=== PATIENT | female | born 1955 | race Caucasian/White ===

== ENCOUNTER 2019-06-12 12:44 | Emergency (ER) | payer OTHER, SELFPAY ==
[2019-06-12 12:47] VITALS: BP 165/74; PULSE 64; RESP 18; TEMP 36.1; O2SAT 98
--- NOTE | 2019-06-12 12:56 | ED.GENADUL_ITS ---
Discharge Plan Disposition Patient Disposition: HOME Condition: Stable Discharge Details Chief Complaint: RashLesion Clinical Impression: Tick bite Primary Care Provider: Dona Fernandez ED Provider: Jose Roberto Morales Home Meds and New Rx's Prescriptions: Continued atenolol 25 mg Tablet 25 mg PO DAILY RF: 0 montelukast [Singulair] 10 mg Tablet 10 mg PO DAILY RF: 0 Symbicort 160-4.5 mcg/actuation Hfa Aerosol Inhaler 2 puff INHALATION BID RF: 0 Discharge Instructions Instructions: Tick Bite (ED) Additional Instructions: As we discussed, you were given a 200 mg dose of doxycycline for prophylaxis against Lyme disease. Continue your regular medications. Medical Decision Making 64-year-old female presents with complaint of noticing a tick embedded in her left upper extremity today after walking in the outdoors yesterday. She is well-appearing otherwise healthy. The tick was removed by nursing staff. I recommended and will offer a single one-time dose of 200 mg doxycycline for prophylactic coverage of tickborne disease. She is stable for discharge to home. HPI General Mode of arrival: ambulatory . Date/Time Provider Initiated Documentation: 06/12/19 12:54 . Limitations to Documentation: no limitations . Information obtained by: patient . History of Present Illness 64 year old F presents to the emergency department with the chief complaint of Left upper extremity tick engorged, no pain, and is localized to the left and upper extremity. Patient started experiencing this hour(s) and it has been constant. No relieving factors improve symptom(s), No exacerbating factors reported . Patient notes no other symptoms.; denies fever/chills. Patient did receive the following treatments prior to arrival, none Related Data Home Medications Medication Instructions Recorded Confirmed Symbicort 2 puff INHALATION BID 06/12/19 06/12/19 atenolol 25 mg PO DAILY 06/12/19 06/12/19 montelukast [Singulair] 10 mg PO DAILY 06/12/19 06/12/19 Allergies Allergy/AdvReac Type Severity Reaction Status Date / Time lisinopril Allergy Skin Rash Unverified 06/12/19 12:51 General Stated Complaint: RashLesion ISAAC: 4 Review of Systems Narrative: Denies other complaints. PFSH Social History Smoking/Tobacco Use Status: Never Alcohol Intake: never Drug use: Never Substance use type: does not use Do you feel safe at home: Yes Do you feel safe in your relationship?: Yes Exam Narrative Exam Narrative: GEN: awake, alert, oriented 3. Pleasant, well groomed, interactive. HEAD: Normocephalic, atraumatic ENT: Mucous membranes moist, oropharynx unremarkable, External ear exam unremar kable EYES: PERRL, EOMI EXT: Full ROM, no edema, no rash. Small engorged tick embedded in left medial humerus Neuro: Grossly normal neurologic exam, conversant, interactive. Psych: Speech fluent, thoughts congruent, affect normal Course Vital Signs Vital signs: Vital Signs Temperature 36.1 C L 06/12/19 12:47 Pulse 64 06/12/19 12:47 Respiratory Rate 18 06/12/19 12:47 Blood Pressure 165/74 H 06/12/19 12:47 Pulse Oximetry 98 06/12/19 12:47 Temperature 36.1 C L 06/12/19 12:47 Temperature Source Temporal Artery Scan 06/12/19 12:47 Pulse 64 06/12/19 12:47 Respiratory Rate 18 06/12/19 12:47 Respiratory Effort Non-Labored 06/12/19 12:49 Blood Pressure 165/74 H 06/12/19 12:47 Blood Pressure Position Sitting 06/12/19 12:47 Pulse Oximetry 98 06/12/19 12:47 Oxygen Delivery Method Room Air 06/12/19 12:47 Oxygen Flow Rate 0 06/12/19 12:47 Pain Level 2 06/12/19 12:47
[2019-06-12] MEDS: Doxycycline Hyclate 100 MG CAP 200 MG PO (13:00)
== END 2019-06-12 13:10 | disposition home or self-care (01) ==
PROVIDERS: Emergency Provider Emergency Medicine; PCP General Practice
DX: S40.862A Insect bite (nonvenomous) of left upper arm, initial encounter (principal); W57.XXXA Bitten or stung by nonvenomous insect and other nonvenomous arthropods, initial encounter
CPT/HCPCS: 99283

== ENCOUNTER 2019-09-12 08:40 | Outpatient (CLI) | payer OTHER, SELFPAY ==
[2019-09-12 09:01] LABS: Abs Immature Grans 0.01 k/cumm (0.0-0.09); Absolute Basophil Count 0.04 k/cumm (0.0-0.2); Absolute Eosinophil Count 0.24 k/cumm (0.0-0.7); Absolute Lymphocyte Count 1.73 k/cumm (1.2-3.4); Absolute Monocyte Count 0.38 k/cumm (0.11-0.7); Absolute Neutrophil Count 3.16 k/cumm (1.2-6.7); Basophils % 0.7; Eosinophils % 4.3; HCT 42.2 % (36.0-46.0); HGB 13.5 g/dL (12.0-15.5); Immature Grans % 0.2 %; Lymphocytes % 31.1; Mean Corpuscular Hemoglobin 29.3 pg (27.0-33.0); Mean Corpuscular Volume 91.5 fL (80-95); Mean Platelet Volume 10.8 fL (8.0-11.0); Monocytes % 6.8; Neutrophils % 56.9; Platelet Count 254 x1000/uL (130-400); RBC 4.61 m/cumm (4.00-5.20); RBC Distribution Width 14.7 % (11.7-14.6); White Blood Cell Count 5.56 k/cumm (4.4-10.8)
[2019-09-12 10:05] LABS: ALT 25 U/L (14-59); AST 20 U/L (15-37); Alkaline Phosphatase 76 U/L (46-116); Anion Gap 9.3 mmol/L (3-11); BUN 17 mg/dL (7-18); Bilirubin, Total 0.5 mg/dL (0.2-1.0); CO2 28.7 mmol/L (21.0-32.0); CREATININE 0.68 mg/dL (0.55-1.02); Calcium 8.7 mg/dL (8.5-10.1); Calculated LDL 134 mg/dL (<100); Chloride 105 mmol/L (98-107); Cholesterol 226 mg/dL (<200); Glucose 71 mg/dL (74-106); HDL Cholesterol 78 mg/dL (40-60); Potassium 4.3 mmol/L (3.5-5.1); Sodium 143 mmol/L (136-145); TSH (W/Ref FT4) 1.72 uIU/mL (0.36-3.74); Total Protein 6.6 g/dL (6.4-8.2); Triglyceride 70 mg/dL (<150)
== END 2019-09-12 09:00 ==
PROVIDERS: PCP General Practice; Visit Provider General Practice
DX: Z00.00 Encounter for general adult medical examination without abnormal findings (principal); Z13.220 Encounter for screening for lipoid disorders; Z13.29 Encounter for screening for other suspected endocrine disorder; Z13.0 Encounter for screening for diseases of the blood and blood-forming organs and certain disorders involving the immune mechanism; Z13.228 Encounter for screening for other metabolic disorders
CPT/HCPCS: 36415; 80053; 80061; 84443; 85025

== ENCOUNTER 2021-12-27 08:29 | Outpatient (REF) | payer MEDICARE, SELFPAY ==
[2021-12-27 17:29] LABS: COMMENT (LAB VIEW ONLY) 175.85 mg/dL; Microalb ug/mg Crea 18.3 ug/mg Cr
[2021-12-27 18:30] LABS: Anion Gap 9.3 mmol/L (3-11); BUN 15 mg/dL (7-18); CO2 26.7 mmol/L (21.0-32.0); CREATININE 0.7 mg/dL (0.55-1.02); Calcium 9.1 mg/dL (8.5-10.1); Chloride 106 mmol/L (98-107); Glucose 113 mg/dL (74-106); Potassium 4.5 mmol/L (3.5-5.1); Sodium 142 mmol/L (136-145); TSH (W/Ref FT4) 2.44 uIU/mL (0.36-3.74)
[2021-12-28 17:52] LABS: T3,Free 4.1 pg/mL (2.8-5.3)
[2021-12-29 09:51] LABS: Hepatitis C Ab w Rflx HCV PCR Negative (Negative)
[2021-12-29 10:02] LABS: HIV-1/2 Ag & Ab Screen Negative (Negative)
== END 2021-12-27 08:30 | disposition home or self-care (01) ==
LOC: NCHCN 08:29
PROVIDERS: Nurse Practitioner Family; PCP Nurse Practitioner Family; Visit Provider Nurse Practitioner Family
DX: L65.9 Nonscarring hair loss, unspecified (principal); R63.5 Abnormal weight gain; R53.83 Other fatigue; I10 Essential (primary) hypertension; Z11.59 Encounter for screening for other viral diseases; Z11.4 Encounter for screening for human immunodeficiency virus [HIV]; Z00.00 Encounter for general adult medical examination without abnormal findings
CPT/HCPCS: 80048; 86803; 87389; 82043; 82570; 84443; 84481

== ENCOUNTER 2023-05-04 10:33 | Outpatient (REF) | payer OTHER, SELFPAY ==
[2023-05-04 18:59] LABS: ALT 33 U/L (14-59); AST 26 U/L (15-37); Albumin 4.1 g/dL (3.4-5.0); Alkaline Phosphatase 103 U/L (46-116); Anion Gap 11.1 mmol/L (3-11); BUN 22 mg/dL (7-18); Bilirubin, Total 0.4 mg/dL (0.2-1.0); CO2 24.9 mmol/L (21.0-32.0); CREATININE 0.8 mg/dL (0.55-1.02); Calcium 9.6 mg/dL (8.5-10.1); Calculated LDL 152 mg/dL (<100); Chloride 101 mmol/L (98-107); Cholesterol 251 mg/dL (<200); Estimated GFR 80.71 (mL/min/1.73m2); Glucose 108 mg/dL (74-106); HDL Cholesterol 79 mg/dL (40-60); Potassium 4.4 mmol/L (3.5-5.1); Sodium 137 mmol/L (136-145); Total Protein 7.9 g/dL (6.4-8.2); Triglyceride 104 mg/dL (<150)
== END 2023-05-04 10:34 | disposition home or self-care (01) ==
LOC: NCHCN 10:33
PROVIDERS: PCP Nurse Practitioner Family; Visit Provider Nurse Practitioner Family
DX: E78.2 Mixed hyperlipidemia (principal); I10 Essential (primary) hypertension
CPT/HCPCS: 80053; 80061

== ENCOUNTER 2023-08-02 16:31 | Outpatient (REF) | payer OTHER, SELFPAY ==
[2023-08-02 21:01] LABS: Hemoglobin A1C 5.8 % (<5.7)
== END 2023-08-02 16:32 | disposition home or self-care (01) ==
LOC: NCHCN 16:31
PROVIDERS: PCP Nurse Practitioner Family; Visit Provider Nurse Practitioner Family
DX: R73.03 Prediabetes (principal)
CPT/HCPCS: 83036

== ENCOUNTER 2024-06-04 23:59 | Outpatient (REF) | payer OTHER, SELFPAY ==
[2024-06-04 20:26] LABS: ALT 38 U/L (14-59); AST 30 U/L (15-37); Albumin 3.8 g/dL (3.4-5.0); Alkaline Phosphatase 78 U/L (46-116); Anion Gap 9.5 mmol/L (3-11); BUN 16 mg/dL (7-18); CO2 28.5 mmol/L (21.0-32.0); CREATININE 0.8 mg/dL (0.55-1.02); Calcium 9.5 mg/dL (8.5-10.1); Calculated LDL 164 mg/dL (<100); Chloride 105 mmol/L (98-107); Cholesterol 276 mg/dL (<200); Estimated GFR 80.21 (mL/min/1.73m2); Glucose 105 mg/dL (74-106); HDL Cholesterol 93 mg/dL (40-60); Potassium 4.4 mmol/L (3.5-5.1); Sodium 143 mmol/L (136-145); Total Protein 7.2 g/dL (6.4-8.2); Triglyceride 99 mg/dL (<150)
== END 2024-06-05 | disposition home or self-care (01) ==
LOC: NCHCN 23:59
PROVIDERS: PCP Nurse Practitioner Family; Visit Provider Nurse Practitioner Family
DX: I10 Essential (primary) hypertension (principal); E78.2 Mixed hyperlipidemia
CPT/HCPCS: 80053; 80061

== ENCOUNTER 2025-06-16 13:56 | Outpatient (REF) | payer MEDICARE, SELFPAY ==
[2025-06-16 19:36] LABS: Hemoglobin A1C 6.0 % (<5.7)
[2025-06-16 19:42] LABS: ALT 26 U/L (14-59); AST 19 U/L (15-37); Albumin 3.8 g/dL (3.4-5.0); Alkaline Phosphatase 94 U/L (46-116); Anion Gap 8.1 mmol/L (3-11); BUN 17 mg/dL (7-18); Bilirubin, Total 0.5 mg/dL (0.2-1.0); CO2 28.9 mmol/L (21.0-32.0); Calcium 9.2 mg/dL (8.5-10.1); Chloride 104 mmol/L (98-107); Cholesterol 276 mg/dL (<200); Glucose 124 mg/dL (74-106); HDL Cholesterol 77 mg/dL (>or=50); Potassium 4.2 mmol/L (3.5-5.1); Sodium 141 mmol/L (136-145); Total Protein 7.5 g/dL (6.4-8.2)
== END 2025-06-16 13:57 | disposition home or self-care (01) ==
LOC: NCHCN 13:56
PROVIDERS: PCP Nurse Practitioner Family; Visit Provider Nurse Practitioner Family
DX: I10 Essential (primary) hypertension (principal); E78.5 Hyperlipidemia, unspecified; R73.03 Prediabetes
CPT/HCPCS: 80053; 80061; 83036